=== PATIENT | female | born 1985 | race Caucasian/White ===

== ENCOUNTER 2018-06-23 21:58 | Emergency (ER) | payer BC ==
[2018-06-23] MEDS ORDERED: Sodium Chloride 0.9% 10 ML Syringe FLUSH PRN (22:10)
[2018-06-23] MEDS: Morphine 2 MG/ML Syringe IVPUSH ONE (22:21)
[2018-06-23] MEDS: Ondansetron 4 MG/2 ML SDV IVPUSH ONE (22:22)
--- NOTE | 2018-06-23 22:42 | EDM.PDOC ---
ED HPI GENERAL MEDICAL PROBLEM - General Chief Complaint: General Stated Complaint: Abdominal pain Time Seen by Provider: 06/23/18 22:09 Source of Information: Reports: Patient History Limitations: Reports: No Limitations - History of Present Illness INITIAL COMMENTS - FREE TEXT/NARRATIVE: Sudden abominal pain that started almost 4 hours ago. Pain is in epigastric area as well as left abdomen. No history of similar pain in past. No fevers/chills/nausea/emesis/bowel changes. No UTI complaint. Radiates towards low back. History of cholecystectomy, , and surgery for rupture cyst. Hurts more to straighten left leg when laying flat, so patient keeps legs bent. Was feeling fine earlier today. No other reported changes. Breathing does not make pain worse. Sitting up/laying down do not help the pain. 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 amniotic fluid infection with current (11/20) - Past Surgical History Female Surgical History: Reports: Section Social & Family History - Caffeine Use Caffeine Use: Reports: Soda ED ROS GENERAL - Review of Systems Review Of Systems: ROS reveals no pertinent complaints other than HPI. ED EXAM, GENERAL - Physical Exam Exam: See Below Exam Limited By: No Limitations General Appearance: Alert, WD/WN, Anxious, Severe Distress, Obese Eye Exam: Bilateral Eye: EOMI, PERRL Ears: Normal External Exam Nose: No: Nasal Deformity, Nasal Swelling, Nasal Drainage Throat/Mouth: Normal Inspection, Normal Lips, Normal Voice, No Airway Compromise Head: Atraumatic, Normocephalic Neck: Normal Inspection, Supple, Non-Tender, Full Range of Motion Respiratory/Chest: No Respiratory Distress, Lungs Clear, Normal Breath Sounds, No Accessory Muscle Use, Chest Non-Tender Cardiovascular: Normal Peripheral Pulses, Regular Rate, Rhythm, No Edema, No Murmur GI/Abdominal: No Distention, Tender (epigastrum and LLQ, more so in LLQ. ), Other (bowel sounds present). No: Guarding, Rigid, Rebound, Mass (Female) Exam: Deferred Rectal (Female) Exam: Deferred Back Exam: No: CVA Tenderness (L), CVA Tenderness (R) Extremities: Normal Inspection, Normal Range of Motion, Non-Tender, No Pedal Edema, Normal Capillary Refill Neurological: Alert, Oriented, Normal Cognition, Normal Gait, No Motor/Sensory Deficits Psychiatric: Normal Affect, Normal Mood Skin Exam: Warm, Dry, Intact Course - Vital Signs Last Recorded V/S: Last Vital Signs Temp 36.6 C 06/23/18 21:59 Pulse 87 06/23/18 21:59 Resp 20 06/23/18 21:59 BP 160/113 H 06/23/18 21:59 Pulse Ox 95 06/23/18 21:59 - Orders/Labs/Meds Orders: Active Orders 24 hr Category Date Time Status Abdomen 2V AP Flat Upright [CR] Stat Exams 06/23/18 22:10 Stop Req Abdomen Pelvis w Cont [CT] Stat Exams 06/23/18 22:40 Taken Sodium Chloride 0.9% [Normal Saline] 1,000 ml Med 06/24/18 00:30 Active IV .BOLUS Sodium Chloride 0.9% [Saline Flush] Med 06/23/18 22:10 Active 10 ml FLUSH ASDIRECTED PRN Saline Lock Insert [OM.PC] Stat Oth 06/23/18 22:09 Ordered Medication Orders Sodium Chloride (Normal Saline) 1,000 mls @ 300 mls/hr IV .BOLUS ONE Stop: 06/24/18 03:49 Sodium Chloride (Saline Flush) 10 ml FLUSH ASDIRECTED PRN PRN Reason: Keep Vein Open Labs: Laboratory Tests 06/23/18 06/23/18 06/23/18 Range/Units 22:30 22:30 23:00 WBC 11.0 H (4.0-10.2) K/uL RBC 4.93 (3.77-5.09) M/uL Hgb 15.2 D (11.7-15.5) g/dL Hct 43.9 (34.0-46.0) % MCV 89.0 (84.0-98.0) fL MCH 30.8 (28.2-33.3) pg MCHC 34.6 (31.7-36.0) g/dL RDW 12.5 (11.2-14.1) % Plt Count 278 D (150-350) K/uL Neut % (Auto) 49.3 (45.0-80.0) % Lymph % (Auto) 40.4 (10.0-50.0) % [place] % (Auto) 8.5 (2.0-14.0) % Eos % (Auto) 1.5 (0.0-5.0) % Baso % (Auto) 0.3 (0.0-2.0) % Neut # (Auto) 5.42 (1.40-7.00) K/uL Lymph # (Auto) 4.43 H (0.50-3.50) K/uL [place] # (Auto) 0.93 (0.00-1.00) K/uL Eos # (Auto) 0.16 (0.00-0.50) K/uL Baso # (Auto) 0.03 (0.00-0.20) K/uL Sodium 142 (136-145) mmol/L Potassium 4.1 (3.5-5.1) mmol/L Chloride 104 (98-107) mmol/L Carbon Dioxide 24.9 (21.0-32.0) mmol/L BUN 15 (7-18) mg/dL Creatinine 0.83 (0.51-1.17) mg/dL Est Cr Clr Drug Dosing 84.80 mL/min Estimated GFR (MDRD) > 60 mL/min Glucose 100 (74-106) mg/dL Calcium 9.3 (8.5-10.1) mg/dL Total Bilirubin 0.4 (0.2-1.0) mg/dL AST 42 H (15-37) U/L ALT 94 H (12-78) U/L Alkaline Phosphatase 163 H (46-116) IU/L Total Protein 8.1 (6.4-8.2) g/dL Albumin 4.1 (3.4-5.0) g/dL Amylase 51 (25-115) U/L Lipase 116 (73-393) U/L Specimen Type Urinblad Urine Color Yellow Urine Appearance Slightly cloudy Urine pH 7.0 (5.0-9.0) Ur Specific [place] 1.020 (1.005-1.030) Urine Protein Negative (NEGATIVE) mg/dL Urine Glucose (UA) Negative (NEGATIVE) mg/dL Urine Ketones Trace H (NEGATIVE) mg/dL Urine Occult Blood Negative (NEGATIVE) Urine Nitrite Negative (NEGATIVE) Urine Bilirubin Negative (NEGATIVE) Urine Urobilinogen 0.2 (0.2-1.0) E.U./dL Ur Leukocyte Esterase Negative (NEGATIVE) Urine RBC 0-5 /HPF Urine WBC 0-5 /HPF Ur Epithelial Cells Few /LPF Amorphous Sediment Few (0/HPF) /HPF Urine Bacteria Few (NONE TO FEW) /HPF Urine HCG, Qual 06/23/18 Range/Units 23:00 WBC (4.0-10.2) K/uL RBC (3.77-5.09) M/uL Hgb (11.7-15.5) g/dL Hct (34.0-46.0) % MCV (84.0-98.0) fL MCH (28.2-33.3) pg MCHC (31.7-36.0) g/dL RDW (11.2-14.1) % Plt Count (150-350) K/uL Neut % (Auto) (45.0-80.0) % Lymph % (Auto) (10.0-50.0) % [place] % (Auto) (2.0-14.0) % Eos % (Auto) (0.0-5.0) % Baso % (Auto) (0.0-2.0) % Neut # (Auto) (1.40-7.00) K/uL Lymph # (Auto) (0.50-3.50) K/uL [place] # (Auto) (0.00-1.00) K/uL Eos # (Auto) (0.00-0.50) K/uL Baso # (Auto) (0.00-0.20) K/uL Sodium (136-145) mmol/L Potassium (3.5-5.1) mmol/L Chloride (98-107) mmol/L Carbon Dioxide (21.0-32.0) mmol/L BUN (7-18) mg/dL Creatinine (0.51-1.17) mg/dL Est Cr Clr Drug Dosing mL/min Estimated GFR (MDRD) mL/min Glucose (74-106) mg/dL Calcium (8.5-10.1) mg/dL Total Bilirubin (0.2-1.0) mg/dL AST (15-37) U/L ALT (12-78) U/L Alkaline Phosphatase (46-116) IU/L Total Protein (6.4-8.2) g/dL Albumin (3.4-5.0) g/dL Amylase (25-115) U/L Lipase (73-393) U/L Specimen Type Urine Color Urine Appearance Urine pH (5.0-9.0) Ur Specific [place] (1.005-1.030) Urine Protein (NEGATIVE) mg/dL Urine Glucose (UA) (NEGATIVE) mg/dL Urine Ketones (NEGATIVE) mg/dL Urine Occult Blood (NEGATIVE) Urine Nitrite (NEGATIVE) Urine Bilirubin (NEGATIVE) Urine Urobilinogen (0.2-1.0) E.U./dL Ur Leukocyte Esterase (NEGATIVE) Urine RBC /HPF Urine WBC /HPF Ur Epithelial Cells /LPF Amorphous Sediment (0/HPF) /HPF Urine Bacteria (NONE TO FEW) /HPF Urine HCG, Qual Negative Meds: Medications Generic Name Dose Route Start Last Admin Trade Name Freq PRN Reason Stop Dose Admin Sodium Chloride 1,000 mls @ 300 mls/hr 06/24/18 00:30 Normal Saline IV 06/24/18 03:49 .BOLUS ONE Sodium Chloride 10 ml 06/23/18 22:10 Saline Flush FLUSH ASDIRECTED PRN Keep Vein Open Discontinued Medications Generic Name Dose Route Start Last Admin Trade Name Freq PRN Reason Stop Dose Admin Hydromorphone HCl 1 mg 06/24/18 00:39 Dilaudid IVPUSH 06/24/18 00:40 ONETIME ONE Morphine Sulfate 2 mg 06/23/18 22:11 06/23/18 22:21 Morphine IVPUSH 06/23/18 22:12 2 mg ONETIME ONE Administration Morphine Sulfate 4 mg 06/23/18 22:41 06/23/18 23:31 Morphine IVPUSH 06/23/18 22:42 4 mg ONETIME ONE Administration Morphine Sulfate 4 mg 06/24/18 00:30 Morphine IVPUSH 06/24/18 00:31 ONETIME ONE Ondansetron HCl 4 mg 06/23/18 22:11 06/23/18 22:22 Zofran IVPUSH 06/23/18 22:12 4 mg ONETIME ONE Administration - Radiology Interpretation Free Text/Narrative:: Radiology suspects left paraduodenal internal hernia. No obvious bowel infarct or ischemia noted. CT Results Date: 06/24/18 CT Results Time: 23:51 - Re-Assessments/Exams Free Text/Narrative Re-Assessment/Exam: Labs requested. IV access obtained. Pain medication given. CT of abdomen and pelvis requested given the amount of pain patient was experiencing and history of multiple previous surgeries that could result in scar tissue/obstruction. MS improved pain. Free Text/Narrative Re-Assessment/Exam: 06/24/18 00:27 Pain improved to 4/10 Call placed to [facility] once Radiology report available. Paraduodenal hernias may require surgical treatment. Patient accepted by Dr. Rosa, surgeon electronic induction hardener [facility]. Arrangements made to transport patient to [facility] once bed availability confirmed. Departure - Departure Time of Disposition: 00:43 Disposition: DC/Tfer to Acute Hospital 02 Condition: Good Clinical Impression: Abdominal pain Qualifiers: Abdominal location: epigastric Qualified Code(s): R10.13 - Epigastric pain - Discharge Information *PRESCRIPTION DRUG MONITORING PROGRAM REVIEWED*: Not Applicable *COPY OF PRESCRIPTION DRUG MONITORING REPORT IN PATIENT MARTIN: Not Applicable Referrals: Cally Galindo NP [Primary Care Provider] - Forms: ED Department Discharge - My Orders Last 24 Hours: My Active Orders 06/23/18 22:09 Saline Lock Insert [OM.PC] Stat 06/23/18 22:10 Abdomen 2V AP Flat Upright [CR] Stat Sodium Chloride 0.9% [Saline Flush] 10 ml FLUSH ASDIRECTED PRN 06/23/18 22:40 Abdomen Pelvis w Cont [CT] Stat 06/24/18 00:30 Sodium Chloride 0.9% [Normal Saline] 1,000 ml IV .BOLUS - Assessment/Plan Last 24 Hours: My Active Orders 06/23/18 22:09 Saline Lock Insert [OM.PC] Stat 06/23/18 22:10 Abdomen 2V AP Flat Upright [CR] Stat Sodium Chloride 0.9% [Saline Flush] 10 ml FLUSH ASDIRECTED PRN 06/23/18 22:40 Abdomen Pelvis w Cont [CT] Stat 06/24/18 00:30 Sodium Chloride 0.9% [Normal Saline] 1,000 ml IV .BOLUS
[2018-06-23 22:52] LABS: CHLORIDE,CL 104 mmol/L (98-107); SODIUM,NA 142 mmol/L (136-145)
[2018-06-23] MEDS: Morphine 4 MG/ML Syringe IVPUSH ONE (23:31)
[2018-06-24] MEDS ORDERED: Morphine 4 MG/ML Syringe IVPUSH ONE (00:30)
[2018-06-24] MEDS: HYDROmorphone 1 MG/ML Syringe IVPUSH ONE (00:51)
[2018-06-24] MEDS: Sodium Chloride 0.9% 1,000 ML IV ONE (00:51)
[2018-06-24 03:40] VITALS: BP 138/100
== END 2018-06-24 01:15 ==
LOC: LL.ED 21:58
DX: R10.13 Epigastric pain (principal); Z88.0 Allergy status to penicillin; Z79.899 Other long term (current) drug therapy
CPT/HCPCS: 36415; 74177; 80053; 81001; 81025; 82150; 83690; 85025; 96374; 96375; 96376; 99285-25; J1170; J2270; J2405; J7030; Q9967

== ENCOUNTER 2020-02-18 23:19 | Emergency (ER) | payer BC, OTHER ==
[2020-02-18] MEDS ORDERED: Ondansetron 4 MG Tab.DIS PO ONE (23:28)
[2020-02-18] MEDS ORDERED: GI Cocktail Oral Solution 30 ML PO ONE (23:28)
[2020-02-18 23:34] VITALS: PULSE 115
[2020-02-19 00:05] LABS: CHLORIDE,CL 102 mmol/L (98-107); SODIUM,NA 138 mmol/L (136-145)
[2020-02-19 00:12] VITALS: BP 135/66
[2020-02-19] MEDS ORDERED: Iopamidol 612 MG/ML 100 ML Bottle IVPUSH ONE (00:31)
--- NOTE | 2020-02-19 01:58 | EDM.PDOC ---
ED HPI GENERAL MEDICAL PROBLEM - General Chief Complaint: Abdominal Pain Stated Complaint: Abd pain Time Seen by Provider: 02/18/20 23:35 Source of Information: Reports: Patient History Limitations: Reports: No Limitations - History of Present Illness INITIAL COMMENTS - FREE TEXT/NARRATIVE: Pt with sudden onset of epigastric pain and N/V No fever No chest pain No SOB Has had internal bowel hernia repaired in past No recent trauma Did eat pizza for dinner Onset: Today, Sudden Duration: Hour(s): Location: Reports: Abdomen Associated Symptoms: Reports: Nausea/Vomiting Abdominal Pain Score (Numeric/FACES): 10 - Related Data Allergies Allergy/AdvReac Type Severity Reaction Status Date / Time Penicillins Allergy Rash Verified 02/18/20 23:20 Home Meds: Home Meds Acetaminophen 650 mg PO Q4HR PRN 02/18/20 [History] Citalopram [Citalopram HBr] 20 mg PO DAILY 02/18/20 [History] Famotidine [Pepcid] 10 mg PO ASDIRECTED PRN 02/18/20 [History] Past Medical History Other HEENT History: wears glasses Gastrointestinal History: Reports: Hemorrhoids 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 amniotic fluid infection with current (11/21/15) - Past Surgical History Female Surgical History: Reports: Section Social & Family History - Tobacco Use Tobacco Use Status *Q: Former Tobacco User Used Tobacco, but Quit: Yes Month/Year Tobacco Last Used: 03/2009 - Caffeine Use Caffeine Use: Reports: Coffee - Recreational Drug Use Recreational Drug Use: No ED ROS GENERAL - Review of Systems Review Of Systems: See Below Constitutional: Reports: No Symptoms Respiratory: Reports: No Symptoms Cardiovascular: Reports: No Symptoms GI/Abdominal: Reports: Abdominal Pain, Nausea, Vomiting ED EXAM, GI/ABD - Physical Exam Exam: See Below Exam Limited By: No Limitations Throat/Mouth: Normal Oropharynx Neck: Supple Respiratory/Chest: Lungs Clear Cardiovascular: Regular Rate, Rhythm GI/Abdominal Exam: Other (Tender in epigastric area Mid-line hernias palpable above umbilicus) Neurological: Alert, Oriented, No Motor/Sensory Deficits Psychiatric: Normal Affect, Normal Mood Course - Vital Signs Last Recorded V/S: Last Vital Signs Temp 97.4 F 02/18/20 23:33 Pulse 115 H 02/18/20 23:33 Resp 20 02/18/20 23:33 BP 135/66 02/19/20 00:11 Pulse Ox 100 02/18/20 23:33 - Orders/Labs/Meds Orders: Active Orders 24 hr Category Date Time Status Abdomen Pelvis w Cont [CT] Stat Exams 02/19/20 00:16 Ordered CULTURE URINE [RM] Stat Lab 02/19/20 00:10 Received Labs: Laboratory Tests 02/18/20 02/18/20 02/19/20 Range/Units 23:35 23:35 00:10 WBC 11.9 H (4.0-10.2) K/uL RBC 4.49 (3.77-5.09) M/uL Hgb 13.6 (11.7-15.5) g/dL Hct 39.9 (34.0-46.0) % MCV 88.9 (84.0-98.0) fL MCH 30.3 (28.2-33.3) pg MCHC 34.1 (31.7-36.0) g/dL RDW 13.0 (11.2-14.1) % Plt Count 314 (150-350) K/uL Neut % (Auto) 43.9 L (45.0-80.0) % Lymph % (Auto) 45.7 (10.0-50.0) % [place] % (Auto) 9.0 (2.0-14.0) % Eos % (Auto) 1.1 (0.0-5.0) % Baso % (Auto) 0.3 (0.0-2.0) % Neut # (Auto) 5.24 (1.40-7.00) K/uL Lymph # (Auto) 5.45 H (0.50-3.50) K/uL [place] # (Auto) 1.07 H (0.00-1.00) K/uL Eos # (Auto) 0.13 (0.00-0.50) K/uL Baso # (Auto) 0.03 (0.00-0.20) K/uL Sodium 138 (136-145) mmol/L Potassium 3.7 (3.5-5.1) mmol/L Chloride 102 (98-107) mmol/L Carbon Dioxide 25.5 (21.0-32.0) mmol/L BUN 15 (7-18) mg/dL Creatinine 0.62 (0.51-1.17) mg/dL Est Cr Clr Drug Dosing 111.45 mL/min Estimated GFR (MDRD) > 60 mL/min Glucose 97 (74-106) mg/dL Calcium 8.6 (8.5-10.1) mg/dL Total Bilirubin 0.3 (0.2-1.0) mg/dL AST 26 (15-37) U/L ALT 43 (12-78) U/L Alkaline Phosphatase 107 (46-116) IU/L Total Protein 7.8 (6.4-8.2) g/dL Albumin 3.6 (3.4-5.0) g/dL Amylase 58 (25-115) U/L Lipase 160 (73-393) U/L Specimen Type Urincc Urine Color Yellow Urine Appearance Clear Urine pH 6.0 (5.0-9.0) Ur Specific [place] >= 1.030 (1.005-1.030) Urine Protein Negative (NEGATIVE) mg/dL Urine Glucose (UA) Negative (NEGATIVE) mg/dL Urine Ketones Trace H (NEGATIVE) mg/dL Urine Occult Blood Trace-intact H (NEGATIVE) Urine Nitrite Negative (NEGATIVE) Urine Bilirubin Negative (NEGATIVE) Urine Urobilinogen 0.2 (0.2-1.0) E.U./dL Ur Leukocyte Esterase Trace H (NEGATIVE) Urine RBC Not Reportable Urine WBC Not Reportable Urinalysis Comment See note Meds: Medications Discontinued Medications Generic Name Dose Route Start Last Admin Trade Name Freq PRN Reason Stop Dose Admin Al Hydroxide/Mg Hydroxide 30 ml 02/18/20 23:28 02/18/20 23:31 Gi Cocktail PO 02/18/20 23:29 30 ml ONETIME ONE Administration Iopamidol 100 ml 02/19/20 00:31 02/19/20 00:44 Isovue-300 (61%) IVPUSH 02/19/20 00:32 100 ml ONETIME ONE Administration Ondansetron HCl 4 mg 02/18/20 23:28 02/18/20 23:31 Zofran Odt PO 02/18/20 23:29 4 mg Q6H ONE Administration - Re-Assessments/Exams Free Text/Narrative Re-Assessment/Exam: 02/19/20 01:56 See lab Pt given Zofran in ER for nausea and vomiting Pt also given GI cocktail and symptoms improved CT: Ventral hernias with fat but no acute pathology Departure - Departure Time of Disposition: 02:00 Disposition: Home, Self-Care 01 Clinical Impression: Abdominal pain Qualifiers: Abdominal location: epigastric Qualified Code(s): R10.13 - Epigastric pain - Discharge Information *PRESCRIPTION DRUG MONITORING PROGRAM REVIEWED*: Not Applicable *COPY OF PRESCRIPTION DRUG MONITORING REPORT IN PATIENT MARTIN: Not Applicable Instructions: Ondansetron oral dissolving tablet, Abdominal Pain, Adult, [id number] Referrals: Cally Galindo RV REPAIRER [Primary Care Provider] - Forms: ED Department Discharge Additional Instructions: Follow up in clinic OTC Prilosec or Tagamet as needed Sepsis Event Note (ED) - Evaluation Sepsis Screening Result: No Definite Risk - Focused Exam Vital Signs: Vital Signs Temp Pulse Resp BP Pulse Ox 02/19/20 00:11 135/66 02/18/20 23:33 97.4 F 115 H 20 165/98 H 100 - My Orders Last 24 Hours: My Active Orders 02/19/20 00:10 CULTURE URINE [RM] Stat 02/19/20 00:16 Abdomen Pelvis w Cont [CT] Stat - Assessment/Plan Last 24 Hours: My Active Orders 02/19/20 00:10 CULTURE URINE [RM] Stat 02/19/20 00:16 Abdomen Pelvis w Cont [CT] Stat
== END 2020-02-19 02:08 | disposition home or self-care (01) ==
LOC: LL.ED 23:19
DX: R10.13 Epigastric pain (principal); Z88.0 Allergy status to penicillin; Z79.899 Other long term (current) drug therapy; Z87.891 Personal history of nicotine dependence
CPT/HCPCS: 36415; 74177; 80053; 81001; 82150; 83690; 85025; 87086; 99284-25; A9270-GY; Q9967

== ENCOUNTER 2021-09-25 11:36 | Emergency (ER) | payer BC, OTHER ==
[2021-09-25] MEDS ORDERED: Sodium Chloride 0.9% 1,000 ML IV ONE (12:23)
[2021-09-25 12:49] VITALS: BP 125/83; PULSE 60
[2021-09-25 12:57] LABS: ANION GAP 8.8 meq/L (7-15)
== END 2021-09-25 13:58 | disposition home or self-care (01) ==
LOC: LL.ED 11:36
DX: R55 Syncope and collapse (principal); R42 Dizziness and giddiness; Z88.0 Allergy status to penicillin
CPT/HCPCS: 36415; 80053; 81003; 81025; 83605; 83735; 84484; 85025; 85379; 93005; 99284